=== PATIENT | male | born 1970 | race American Indian/Alaskan Native ===

== ENCOUNTER 2017-03-12 18:06 | Emergency (ER) | payer MEDICARE ==
[2017-03-12] MEDS ORDERED: CATAPRES PO ONE (19:44)
[2017-03-12] MEDS ORDERED: SUBLIMAZE IV ONE ×2 (19:44→21:56)
[2017-03-12] MEDS ORDERED: ZOFRAN IV ONE (19:44)
--- NOTE | 2017-03-12 19:55 | Emergency Department Report ---
HPI - General Chief Complaint: Abdominal Pain Time Seen by Provider: 03/12/17 19:35 - HPI HPI: Room 24 The patient is a 46-year-old male presenting with a chief complaint abdominal pain. The patient states she has a history of gastroparesis states yes feels as though his gastroparesis has been "bothering" him. Patient states it feels as though his stomach is cramping apart. Patient complains of diffuse periumbilical abdominal pain. Patient admits to nausea vomiting. Patient states she has not had a bowel movement in 4 days. Patient states Reglan has not helped. Patient currently gives his pain a score of 10/10. Patient states upon arrival to the ED he developed a severe headache. The patient last received dialysis today. Location: Abdomen Duration: Intermittent since yesterday Quality: Ripping/like gastroparesis Severity: 10/10 Modifying factors: Reglan and grapes have not helped with constipation Context: [see above] Mode of transportation: [not driving] ED Past Medical Hx - Past Medical History Previous Medical History?: Yes Hx Hypertension: Yes Hx Diabetes: Yes Hx Renal Disease: Yes (ESRD on dialysis) Hx Headaches / Migraines: Yes - Surgical History Past Surgical History?: Yes Hx Cholecystectomy: Yes Additional Surgical History: L fistula upper arm, herniorrhaphy - Family History Family history: no significant - Social History Smoking Status: Never Smoker Substance Use Type: None - Medications Home Medications: Home Medications Medication Instructions Recorded Confirmed Last Taken Type Calcium Carbonate/Vitamin D3 1 each PO QDAY 10/29/15 02/02/16 02/02/16 History [Oystercal-D 500 mg-400 Unit Tb] 1 EACH HYDROcodone/APAP 7.5-325 [[place] 1 each PO Q8HR PRN #10 tablet 10/29/15 02/02/16 02/02/16 Rx 7.5/325] 1 EACH Metoprolol [Lopressor TAB] 50 mg PO BID 10/29/15 02/02/16 02/02/16 History 50 MG Omeprazole [PriLOSEC] 40 mg PO QDAY 10/29/15 02/02/16 02/02/16 History 40 MG Ondansetron [Zofran Odt] 4 mg PO Q6H PRN 10/29/15 02/02/16 02/02/16 History 4 MG Ondansetron [Zofran Odt] 4 mg PO Q8HR #10 tab.rapdis 10/29/15 02/02/16 02/02/16 Rx 4 MG Simvastatin [Zocor TAB] 40 mg PO QHS 10/29/15 02/02/16 02/02/16 History 40 MG Vit B Cmplx 3/FA/Vit C/Biotin 1 each PO QDAY 10/29/15 02/02/16 02/02/16 History [Jordyn-Umair Rx Tablet] 1 EACH Vit B Comp&C/Folic Acid/Vit D3 1 each PO QDAY 10/29/15 02/02/16 02/02/16 History [Dialyvite 800 Plus D Wafer] 1 EACH cloNIDine [Catapres] 0.1 mg PO Q8H 10/29/15 02/02/16 02/02/16 History 0.1 MG hydrALAZINE [Apresoline] 25 mg PO Q8HR 10/29/15 02/02/16 02/02/16 History 25 MG Cinacalcet HCl [Sensipar] 60 mg PO DAILY 02/02/16 02/02/16 02/02/16 History 60 MG Diphenoxylate/Atropine [Lomotil] 1 tab PO QID PRN #20 tablet 02/02/16 Unknown Rx HYDROcodone/APAP 5-325 [[place] 1 - 2 each PO Q6HR PRN #14 tablet 02/02/16 Unknown Rx 5/325] Promethazine [Phenergan TAB] 25 mg PO Q6HR PRN #20 tab 02/02/16 Unknown Rx Promethazine [Phenergan] 25 mg MT Q6HR PRN #10 supp.rect 02/02/16 Unknown Rx Sevelamer Carbonate [Renvela] 800 mg PO TIDWM 02/02/16 02/02/16 02/02/16 History 800 MG Ciprofloxacin HCl [Ciprofloxacin 500 mg PO Q12HR #20 tab 03/12/17 Unknown Rx TAB] Docusate Sodium [Colace] 100 mg PO BID #60 capsule 03/12/17 Unknown Rx HYDROcodone/APAP 5-325 [[place] 1 each PO Q6HR PRN #14 tablet 03/12/17 Unknown Rx 5/325] Lactulose [Cephulac] 20 gm PO QDAY #90 ml 03/12/17 Unknown Rx metroNIDAZOLE [Flagyl] 500 mg PO Q12HR #20 tab 03/12/17 Unknown Rx ED Review of Systems ROS: Stated complaint: ABDOMINAL PAIN Other details as noted in HPI Comment: All other systems reviewed and negative Constitutional: denies: chills, fever Eyes: denies: eye pain, eye discharge, vision change ENT: denies: ear pain, throat pain Respiratory: denies: cough, shortness of breath, wheezing Cardiovascular: denies: chest pain, palpitations Endocrine: no symptoms reported Gastrointestinal: abdominal pain, nausea, vomiting, constipation. denies: diarrhea Genitourinary: denies: urgency, dysuria Musculoskeletal: denies: back pain, joint swelling, arthralgia Skin: denies: rash, lesions Neurological: headache Psychiatric: denies: anxiety, depression Hematological/Lymphatic: denies: easy bleeding, easy bruising Physical Exam - Physical Exam Vital Signs: Vital Signs 03/12/17 19:23 Temperature 97.4 F L Pulse Rate 97 H Blood Pressure 185/101 O2 Sat by Pulse 100 Oximetry Physical Exam: GENERAL: The patient is well-developed well-nourished male lying on stretcher not appearing to be in acute distress. [] HEENT: Normocephalic. Atraumatic. Extraocular motions are intact. Patient has moist mucous membranes. NECK: Supple. Trachea midline CHEST/LUNGS: Clear to auscultation. There is no respiratory distress noted. HEART/CARDIOVASCULAR: Regular. There is no tachycardia. There is no gallop rub or murmur. ABDOMEN: Abdomen is soft, with discomfort to palpation in the periumbilical, left upper quadrant and left lower quadrant. Patient has normal bowel sounds. There is no abdominal distention. SKIN: There is no rash. There is no edema. There is no diaphoresis. NEURO: The patient is awake, alert, and oriented. The patient is cooperative. The patient has no focal neurologic deficits. The patient has normal speech. Cranial nerves II through XII grossly intact, no drift MUSCULOSKELETAL: There is no evidence of acute injury. ED Course Vital Signs 03/12/17 19:23 Temperature 97.4 F L Pulse Rate 97 H Blood Pressure 185/101 O2 Sat by Pulse 100 Oximetry ED Medical Decision Making - Lab Data Result diagrams: 03/12/17 19:32 03/12/17 19:32 Laboratory Tests 03/12/17 03/12/17 19:32 19:32 WBC 4.8 RBC 3.34 L Hgb 9.7 L Hct 29.9 L MCV 90 MCH 29 MCHC 32 RDW 16.9 H Plt Count 214 Lymph % (Auto) 14.5 [place] % (Auto) 5.3 Eos % (Auto) 1.5 Baso % (Auto) 0.9 Lymph # 0.7 L [place] # 0.3 Eos # 0.1 Baso # 0.0 Seg Neutrophils % 77.8 H Seg Neutrophils # 3.7 Sodium 140 Potassium 4.2 Chloride 90.9 L Carbon Dioxide 28 Anion Gap 25 BUN 15 Creatinine 7.5 H Estimated GFR 10 BUN/Creatinine Ratio 2.00 Glucose 141 H Calcium 9.9 Total Bilirubin 0.60 AST 33 ALT 19 Alkaline Phosphatase 221 H Total Protein 8.8 H Albumin 5.0 Albumin/Globulin Ratio 1.3 Lipase 34 - Radiology Data Radiology results: report reviewed (CT abdomen and pelvis, CT head), image reviewed (CT abdomen and pelvis, CT head) CT abdomen and pelvis (read by radiologist)-multiple renal cysts have increased in size since prior study. On his are likely polycystic renal disease. There is wall thickening suggestive rel much: Possibly due to colitis. Likely mild constipation is seen in the rectosigmoid colon. CT head (read by radiologist)-likely mild chronic small vessel ischemic changes are seen in the paravertebral white matter, unchanged from prior study. Mild changes of acute left maxillary sinusitis are seen. - Differential Diagnosis gastroparesis, diverticulitis, ICH, hypertensive urgency Critical care attestation.: If time is entered above; I have spent that time in minutes in the direct care of this critically ill patient, excluding procedure time. ED Disposition Clinical Impression: Nausea and vomiting in adult, Acute abdominal pain, Acute colitis, Acute sinusitis, Hypertension Disposition: DISCHARGED TO HOME OR SELFCARE Is pt being admited?: No Does the pt Need Aspirin: No Condition: Stable Instructions: Hypertension (ED) Additional Instructions: Return to the emergency department immediately should you develop worsening symptoms, fever, inability to tolerate food or liquid or any other concerns. Prescriptions: Ciprofloxacin HCl [Ciprofloxacin TAB] 500 mg PO Q12HR #20 tab Docusate Sodium [Colace] 100 mg PO BID #60 capsule HYDROcodone/APAP 5-325 [[place] 5/325] 1 each PO Q6HR PRN #14 tablet PRN Reason: Pain Lactulose [Cephulac] 20 gm PO QDAY #90 ml metroNIDAZOLE [Flagyl] 500 mg PO Q12HR #20 tab Referrals: PRIMARY CARE, [Primary Care Provider] - 3-5 Days TANNER BRIDGES MD [Staff Physician] - 3-5 Days (Dr. Bridges is a intelligent systems engineer. Please follow up with him for further evaluation) Time of Disposition: 22:45
[2017-03-12 19:57] LABS: Basophils % (Auto) 0.9 % (0.0-1.8); Eosinophils % (Auto) 1.5 % (0.0-4.3); Hematocrit 29.9 % (35.5-45.6); Hemoglobin 9.7 gm/dl (11.8-15.2); Mean Corpuscular HGB Conc 32 % (32-34); Mean Corpuscular Hemoglobin 29 pg (28-32); Mean Corpuscular Volume 90 fl (84-94); Platelet Count 214 K/mm3 (140-440); Red Blood Count 3.34 M/mm3 (3.65-5.03); Red Cell Distribution Width 16.9 % (13.2-15.2); White Blood Count 4.8 K/mm3 (4.5-11.0)
[2017-03-12 20:11] LABS: Albumin/Globulin Ratio 1.3 %; Bilirubin,Total 0.6 mg/dL (0.1-1.2); Calcium 9.9 mg/dL (8.4-10.2); Chloride 90.9 mmol/L (98-107); Potassium 4.2 mmol/L (3.6-5.0); Total Protein 8.8 g/dL (6.3-8.2)
--- NOTE | 2017-03-12 21:30 | Cat Scan Report ---
FINAL REPORT PROCEDURE: CT HEAD/BRAIN WO CON TECHNIQUE: Computerized tomography of the head was performed without contrast material. HISTORY: hypertension, headache COMPARISON: Head CT dated February 02, 2016 FINDINGS: Changes of acute left maxillary sinusitis are seen. Mastoid air cells are clear. No calvarial fracture is seen. Cerebral ventricles are normal in size. No acute intracranial hemorrhage or mass effect is seen. Mild hypodensities are seen in the periventricular white matter, primarily in the frontal regions, similar to prior study. IMPRESSION: Likely mild chronic small vessel ischemic changes are seen in the periventricular white matter, unchanged from prior study. Mild changes of acute left maxillary sinusitis are seen.
--- NOTE | 2017-03-12 21:36 | Cat Scan Report ---
FINAL REPORT PROCEDURE: CT ABDOMEN PELVIS WO CON TECHNIQUE: Computerized axial tomography of the abdomen and pelvis was performed without intravenous contrast. This study is performed without intravascular contrast material and its sensitivity for abdominal and pelvic pathology, including neoplasms, inflammation, abscess, free fluid, thrombosis, arterial dissection and infarction, is reduced compared with a contrast enhanced study. HISTORY: diffuse abdominal pain nausea vomiting. Constipation COMPARISON: CT exam dated February 02, 2016 FINDINGS: Spleen and liver appear normal in size. Diffuse vascular calcifications are seen in the abdomen and pelvis. Varices are seen in the anterior abdominal wall. Patient has had prior cholecystectomy. No pancreatic abnormality is seen on this unenhanced study. The adrenal glands and abdominal aorta are normal in size. 5.4 cm cyst is seen in the lower pole of the right kidney, increased in size from prior study. Multiple smaller cysts are seen in both kidneys but these have mostly increased in size since prior study, also. Bladder appears normal. Prostate gland is normal in size. No free pelvic fluid is seen. Likely mild constipation is seen in the rectosigmoid colon. Much of the colon is not well-distended but there is questionable wall thickening throughout much of the ascending, transverse, and descending colon. Findings are worrisome for colitis. There are scattered diverticula in the colon without suggestion of diverticulitis. Normal appendix is seen. Bones have an osteomalacic appearance possibly due to poor renal function. Schmorl's node formation is seen in the endplates of the upper lumbar spine, similar to prior study. IMPRESSION: Multiple renal cysts have increased in size since prior study. Findings are likely polycystic renal disease. There is wall thickening suggested throughout much of the colon possibly due to colitis. Likely mild constipation is seen in the rectosigmoid colon.
[2017-03-12] MEDS ORDERED: APRESOLINE IV ONE ×2 (21:52→21:56)
[2017-03-12 22:48] VITALS: BP 117/73
== END 2017-03-12 23:05 | disposition home or self-care (01) ==
LOC: ED 18:06
DX: J01.90 Acute sinusitis, unspecified (principal); K52.9 Noninfective gastroenteritis and colitis, unspecified; R11.2 Nausea with vomiting, unspecified; E11.9 Type 2 diabetes mellitus without complications; I12.0 Hypertensive chronic kidney disease with stage 5 chronic kidney disease or end stage renal disease; N18.6 End stage renal disease; G43.909 Migraine, unspecified, not intractable, without status migrainosus; Z99.2 Dependence on renal dialysis
CPT/HCPCS: 36415; 70450; 74176; 80053; 83690; 85025; 96374; 96375; 96376; 99284; J0360; J2405; J3010

== ENCOUNTER 2017-04-16 20:16 | Emergency (ER) | payer MEDICARE ==
[2017-04-16] MEDS ORDERED: NACL 0.9% IR ONE ×2 (22:09→22:38)
--- NOTE | 2017-04-16 22:35 | Emergency Department Report ---
- General Chief Complaint: Wound/Laceration Stated Complaint: WOUND CARE Time Seen by Provider: 04/16/17 21:52 Source: patient, RN notes reviewed, old records reviewed Mode of arrival: Ambulatory Limitations: No Limitations - History of Present Illness Initial Comments: This is a 46-year-old male. The patient is previously unknown to me. The patient was recently admitted to this hospital, and had a left toe amputation by Dr. Kaur, of podiatry. The patient was sent to the ER by his home care nurse for evaluation of myaiasis. The patient denies headache, neck pain, chest pain, abdominal pain and shortness of breath. He describes minimal pain at the operative site. He also receives dialysis, and received dialysis today, and indicates that he received his normal session of dialysis. -: Sudden Extremity Location: Left: Foot Context: other Associated Symptoms: none - Related Data Home Medications Medication Instructions Recorded Confirmed Last Taken Calcium Carbonate/Vitamin D3 1 each PO QDAY 10/29/15 02/02/16 02/02/16 [Oystercal-D 500 mg-400 Unit Tb] 1 EACH Metoprolol [Lopressor TAB] 50 mg PO BID 10/29/15 02/02/16 02/02/16 50 MG Omeprazole [PriLOSEC] 40 mg PO QDAY 10/29/15 02/02/16 02/02/16 40 MG Ondansetron [Zofran ODT TAB] 4 mg PO Q6H PRN 10/29/15 02/02/16 02/02/16 4 MG Simvastatin [Zocor TAB] 40 mg PO QHS 10/29/15 02/02/16 02/02/16 40 MG Vit B Cmplx 3/FA/Vit C/Biotin 1 each PO QDAY 10/29/15 02/02/16 02/02/16 [Jordyn-Umair Rx Tablet] 1 EACH cloNIDine [Catapres] 0.1 mg PO Q8H 10/29/15 02/02/16 02/02/16 0.1 MG hydrALAZINE [Apresoline TAB] 25 mg PO Q8HR 10/29/15 02/02/16 02/02/16 25 MG Cinacalcet HCl [Sensipar] 60 mg PO DAILY 02/02/16 02/02/16 02/02/16 60 MG Sevelamer Carbonate [Renvela] 800 mg PO TIDWM 02/02/16 02/02/16 02/02/16 800 MG Previous Rx's Medication Instructions Recorded Last Taken Type Diphenoxylate/Atropine [Lomotil] 1 tab PO QID PRN #20 tablet 02/02/16 Unknown Rx Promethazine [Phenergan TAB] 25 mg PO Q6HR PRN #20 tab 02/02/16 Unknown Rx Docusate Sodium [Colace CAP] 100 mg PO BID #60 capsule 03/12/17 Unknown Rx HYDROcodone/APAP 5-325 [[place] 1 each PO Q6HR PRN #14 tablet 03/12/17 Unknown Rx 5-325 mg TAB] Lactulose [Cephulac] 20 gm PO QDAY #90 ml 03/12/17 Unknown Rx HYDROcodone/APAP 7.5-325 [[place] 1 each PO Q8HR PRN #10 tablet 04/12/17 Unknown Rx 7.5-325 mg TAB] Vancomycin/0.9 % Sod Chloride 1 gm IV 3XW 14 Days 04/12/17 Unknown Rx [Vancomycin 1 G/200Ml-0.9% NaCl] Allergies Allergy/AdvReac Type Severity Reaction Status Date / Time No Known Allergies Allergy Verified 10/28/15 23:39 ED Review of Systems ROS: Stated complaint: WOUND CARE Other details as noted in HPI Constitutional: denies: fever Eyes: denies: vision change ENT: denies: epistaxis Respiratory: denies: cough Cardiovascular: denies: chest pain Gastrointestinal: denies: abdominal pain Musculoskeletal: as per HPI Skin: as per HPI Neurological: denies: headache, weakness Psychiatric: as per HPI ED Past Medical Hx - Past Medical History Previous Medical History?: Yes Hx Hypertension: Yes Hx Diabetes: Yes Hx Renal Disease: Yes (ESRD on dialysis T,TH,SAT. ) Hx Headaches / Migraines: Yes - Surgical History Hx Cholecystectomy: Yes Additional Surgical History: L fistula upper arm, herniorrhaphy - Social History Smoking Status: Current Some Day Smoker - Medications Home Medications: Home Medications Medication Instructions Recorded Confirmed Last Taken Type Calcium Carbonate/Vitamin D3 1 each PO QDAY 10/29/15 02/02/16 02/02/16 History [Oystercal-D 500 mg-400 Unit Tb] 1 EACH Metoprolol [Lopressor TAB] 50 mg PO BID 10/29/15 02/02/16 02/02/16 History 50 MG Omeprazole [PriLOSEC] 40 mg PO QDAY 10/29/15 02/02/16 02/02/16 History 40 MG Ondansetron [Zofran ODT TAB] 4 mg PO Q6H PRN 10/29/15 02/02/16 02/02/16 History 4 MG Simvastatin [Zocor TAB] 40 mg PO QHS 10/29/15 02/02/16 02/02/16 History 40 MG Vit B Cmplx 3/FA/Vit C/Biotin 1 each PO QDAY 10/29/15 02/02/16 02/02/16 History [Jordyn-Umair Rx Tablet] 1 EACH cloNIDine [Catapres] 0.1 mg PO Q8H 10/29/15 02/02/16 02/02/16 History 0.1 MG hydrALAZINE [Apresoline TAB] 25 mg PO Q8HR 10/29/15 02/02/16 02/02/16 History 25 MG Cinacalcet HCl [Sensipar] 60 mg PO DAILY 02/02/16 02/02/16 02/02/16 History 60 MG Diphenoxylate/Atropine [Lomotil] 1 tab PO QID PRN #20 tablet 02/02/16 Unknown Rx Promethazine [Phenergan TAB] 25 mg PO Q6HR PRN #20 tab 02/02/16 Unknown Rx Sevelamer Carbonate [Renvela] 800 mg PO TIDWM 02/02/16 02/02/16 02/02/16 History 800 MG Docusate Sodium [Colace CAP] 100 mg PO BID #60 capsule 03/12/17 Unknown Rx HYDROcodone/APAP 5-325 [[place] 1 each PO Q6HR PRN #14 tablet 03/12/17 Unknown Rx 5-325 mg TAB] Lactulose [Cephulac] 20 gm PO QDAY #90 ml 03/12/17 Unknown Rx HYDROcodone/APAP 7.5-325 [[place] 1 each PO Q8HR PRN #10 tablet 04/12/17 Unknown Rx 7.5-325 mg TAB] Vancomycin/0.9 % Sod Chloride 1 gm IV 3XW 14 Days 04/12/17 Unknown Rx [Vancomycin 1 G/200Ml-0.9% NaCl] ED Physical Exam - General General appearance: alert, in no apparent distress - Head Head exam: Present: atraumatic, normocephalic - Eye Eye exam: Present: normal appearance, EOMI. Absent: nystagmus - ENT ENT exam: Present: normal exam, normal orophraynx, mucous membranes moist, normal external ear exam - Neck Neck exam: Present: normal inspection, full ROM. Absent: tenderness, meningismus - Respiratory Respiratory exam: Present: normal lung sounds bilaterally. Absent: respiratory distress, wheezes, rales, rhonchi, stridor, chest wall tenderness, accessory muscle use, decreased breath sounds - Cardiovascular Cardiovascular Exam: Present: regular rate, normal rhythm, normal heart sounds. Absent: bradycardia, tachycardia, irregular rhythm, systolic murmur, diastolic murmur, rubs, gallop - GI/Abdominal GI/Abdominal exam: Present: soft, normal bowel sounds. Absent: distended, tenderness, guarding, rebound, rigid, pulsatile mass - Rectal Rectal exam: Present: deferred - Extremities Exam Extremities exam: Present: normal capillary refill (2+ pulses noted in 4 extremities), other (there is a left upper extremity AV fistula with an appropriate thrill.). Absent: normal inspection (the left foot demonstrates a surgical sites where the former second and third toes existed. 3 Kika Larmer are noted. There is no redness, pus or streaking. Wound appears to be healing well. Minimal punctate necrotic tissue noted on the plantar aspect of the patient's foot. There is no crepitus. Compartments are soft.), pedal edema, joint swelling, calf tenderness - Back Exam Back exam: Present: normal inspection, full ROM. Absent: tenderness, CVA tenderness (R), CVA tenderness (L), muscle spasm, paraspinal tenderness, vertebral tenderness - Neurological Exam Neurological exam: Present: alert, oriented X3, other (Extraocular movements intact. Tongue midline. No facial droop. Facial sensation intact to light touch in the V1, V2, V3 distribution bilaterally. 5 and 5 strength in 4 extremities.. Sensation is intact to light touch in 4 extremities.). Absent: motor sensory deficit - Psychiatric Psychiatric exam: Present: normal affect, normal mood - Skin Skin exam: Present: warm, dry, intact, normal color. Absent: rash ED Course Vital Signs 04/16/17 21:28 Temperature 98.0 F Pulse Rate 85 Respiratory 18 Rate Blood Pressure 123/76 O2 Sat by Pulse 100 Oximetry ED Medical Decision Making - Lab Data Vital Signs 04/16/17 21:28 Temperature 98.0 F Pulse Rate 85 Respiratory 18 Rate Blood Pressure 123/76 O2 Sat by Pulse 100 Oximetry - Medical Decision Making Differential diagnosis: myiasis, now resolved, woud care follow up Assessment and plan: 46-year-old male sent to ER for asymptomatic myiasis. I have personally removed the remaining larvae. The patient is afebrile with reassuring vital signs. As per his discharge summaries, the patient is receiving vancomycin and hemodialysis. I have discussed the patient's case with his operative surgeon, Dr. Kaur, who indicates he can see the patient on Tuesday as a follow-up. This was discussed with the patient and family, all of whom verbalized understanding, and were amenable to this plan. The wound site appears to be healing well, with single punctate area of necrotic tissue, given that he has close follow-up this Tuesday, I don't believe the patient requires readmission or emergent surgical intervention. Critical care attestation.: If time is entered above; I have spent that time in minutes in the direct care of this critically ill patient, excluding procedure time. ED Disposition Clinical Impression: Myiasis Disposition: - TO HOME OR SELFCARE Is pt being admited?: No Does the pt Need Aspirin: No Condition: Stable Instructions: Wound Healing and Your Diet (ED), Acute Wound Care (ED) Additional Instructions: Continue current outpatient medications. Follow up on Tuesday with your operative surgeon, Dr. Kaur. Consider following up at the wound care center as well. Return to the ER right away with fevers or chills, chest pain or shortness of breath, lethargy, irritability, confusion, change in mental status, redness, pus, streaking. Referrals: PRIMARY CARE, [Primary Care Provider] - 3-5 Days RIMA KAUR DPM [Staff Physician] - 3-5 Days [facility] [Outside] - 3-5 Days
[2017-04-16] MEDS ORDERED: HYDROGEN PEROXIDE TP ONE (22:37)
[2017-04-16 22:54] LABS: Hematocrit 24.1 % (35.5-45.6); Mean Corpuscular HGB Conc 33 % (32-34); Mean Corpuscular Hemoglobin 30 pg (28-32); Mean Corpuscular Volume 90 fl (84-94); Platelet Count 376 K/mm3 (140-440); Red Blood Count 2.69 M/mm3 (3.65-5.03); Red Cell Distribution Width 15.8 % (13.2-15.2); White Blood Count 7.7 K/mm3 (4.5-11.0)
[2017-04-16 22:59] LABS: Calcium 8.3 mg/dL (8.4-10.2); Chloride 95.6 mmol/L (98-107); Potassium 4.9 mmol/L (3.6-5.0)
[2017-04-16 23:34] VITALS: BP 139/78
== END 2017-04-17 00:15 | disposition home or self-care (01) ==
LOC: ED 20:16
DX: B87.1 Wound myiasis (principal); E11.22 Type 2 diabetes mellitus with diabetic chronic kidney disease; I12.0 Hypertensive chronic kidney disease with stage 5 chronic kidney disease or end stage renal disease; N18.6 End stage renal disease; F17.200 Nicotine dependence, unspecified, uncomplicated; Z89.412 Acquired absence of left great toe
CPT/HCPCS: 36415; 80048; 82550; 85027; 99283

== ENCOUNTER 2017-04-20 10:22 | Outpatient (CLI) | payer MEDICARE ==
[2017-04-20] MEDS ORDERED: XYLOCAINE TOPICAL 4% TP ONE (11:11)
== END 2017-04-20 10:23 | disposition home or self-care (01) ==
LOC: WOUND 10:22
PROVIDERS: ATTEND Surgery
DX: T87.89 Other complications of amputation stump (principal); E11.40 Type 2 diabetes mellitus with diabetic neuropathy, unspecified; K21.9 Gastro-esophageal reflux disease without esophagitis; E78.5 Hyperlipidemia, unspecified; E11.22 Type 2 diabetes mellitus with diabetic chronic kidney disease; I12.0 Hypertensive chronic kidney disease with stage 5 chronic kidney disease or end stage renal disease; N18.5 Chronic kidney disease, stage 5; F41.9 Anxiety disorder, unspecified; F17.200 Nicotine dependence, unspecified, uncomplicated; Z99.2 Dependence on renal dialysis; Z72.89 Other problems related to lifestyle; Y83.5 Amputation of limb(s) as the cause of abnormal reaction of the patient, or of later complication, without mention of misadventure at the time of the procedure

== ENCOUNTER 2017-04-29 08:28 | Outpatient (CLI) | payer MEDICARE ==
--- NOTE | 2017-05-02 07:27 | Vascular Lab Report ---
LEFT LOWER EXTREMITY ARTERIAL DUPLEX: REASON FOR EXAM: Peripheral arterial disease. COMMENTS ON THE LEFT: Biphasic waveforms are seen proximally. Monophasic waveforms are seen distally. No significant velocity gradients are identified. No focal significant plaque is identified. Findings are consistent with normal perfusion. Findings are consistent with the ability to heal distal wounds. IMPRESSION: LEFT:Essentially normal arterial flow.
== END 2017-04-29 08:29 | disposition home or self-care (01) ==
LOC: VAS 08:28
PROVIDERS: ATTEND Surgery
DX: E11.621 Type 2 diabetes mellitus with foot ulcer (principal); L97.529 Non-pressure chronic ulcer of other part of left foot with unspecified severity; I12.0 Hypertensive chronic kidney disease with stage 5 chronic kidney disease or end stage renal disease; N18.6 End stage renal disease; F17.210 Nicotine dependence, cigarettes, uncomplicated

== ENCOUNTER 2017-05-04 10:35 | Outpatient (CLI) | payer MEDICARE ==
[2017-05-04] MEDS ORDERED: XYLOCAINE TOPICAL 4% TP ONE (13:00)
== END 2017-05-04 10:36 | disposition home or self-care (01) ==
LOC: WOUND 10:35
PROVIDERS: ATTEND Surgery
DX: T87.89 Other complications of amputation stump (principal); E11.621 Type 2 diabetes mellitus with foot ulcer; L97.523 Non-pressure chronic ulcer of other part of left foot with necrosis of muscle; E11.22 Type 2 diabetes mellitus with diabetic chronic kidney disease; I12.0 Hypertensive chronic kidney disease with stage 5 chronic kidney disease or end stage renal disease; N18.6 End stage renal disease; E11.40 Type 2 diabetes mellitus with diabetic neuropathy, unspecified; K21.9 Gastro-esophageal reflux disease without esophagitis; E78.5 Hyperlipidemia, unspecified; F17.210 Nicotine dependence, cigarettes, uncomplicated; Z99.2 Dependence on renal dialysis; Z72.89 Other problems related to lifestyle; Y83.5 Amputation of limb(s) as the cause of abnormal reaction of the patient, or of later complication, without mention of misadventure at the time of the procedure

== ENCOUNTER 2017-05-18 10:58 | Outpatient (CLI) | payer MEDICARE ==
[2017-05-18] MEDS ORDERED: XYLOCAINE TOPICAL 4% TP ONE ×2 (11:09→14:44)
== END 2017-05-18 10:59 | disposition home or self-care (01) ==
LOC: WOUND 10:58
PROVIDERS: ATTEND Surgery
DX: T87.89 Other complications of amputation stump (principal); E11.22 Type 2 diabetes mellitus with diabetic chronic kidney disease; I12.0 Hypertensive chronic kidney disease with stage 5 chronic kidney disease or end stage renal disease; N18.6 End stage renal disease; E11.40 Type 2 diabetes mellitus with diabetic neuropathy, unspecified; Z99.2 Dependence on renal dialysis; Z72.89 Other problems related to lifestyle; F17.210 Nicotine dependence, cigarettes, uncomplicated; Y83.5 Amputation of limb(s) as the cause of abnormal reaction of the patient, or of later complication, without mention of misadventure at the time of the procedure

== ENCOUNTER 2017-05-18 12:22 | Emergency (ER) | payer MEDICARE ==
[2017-05-18 12:51] VITALS: BP 181/97
[2017-05-18 13:23] LABS: INR 1.04 (0.87-1.13)
[2017-05-18 13:24] LABS: Partial Thromboplastin Time 26.8 Sec. (24.2-36.6)
[2017-05-18 13:28] LABS: Basophils % (Auto) 1.1 % (0.0-1.8); Eosinophils % (Auto) 4.2 % (0.0-4.3); Hematocrit 33.8 % (35.5-45.6); Hemoglobin 10.5 gm/dl (11.8-15.2); Mean Corpuscular HGB Conc 31 % (32-34); Mean Corpuscular Hemoglobin 28 pg (28-32); Mean Corpuscular Volume 89 fl (84-94); Platelet Count 205 K/mm3 (140-440); Red Blood Count 3.78 M/mm3 (3.65-5.03); Red Cell Distribution Width 17.5 % (13.2-15.2); White Blood Count 4.8 K/mm3 (4.5-11.0)
[2017-05-18 13:35] LABS: BUN/Creatinine Ratio 3.85; Calcium 8.5 mg/dL (8.4-10.2); Chloride 99.1 mmol/L (98-107); Potassium 5.6 mmol/L (3.6-5.0)
--- NOTE | 2017-05-20 11:16 | Vascular Lab Report ---
RIGHT UPPER EXTREMITY VENOUS DUPLEX: REASON FOR EXAM: Pain and swelling of the right upper extremity COMMENTS ON THE RIGHT: All arm veins visualized are freely compressible without evidence of internal echogenicity. The subclavian and internal jugular veins are free of thrombus. Flow is spontaneous and phasic throughout. COMMENTS ON THE LEFT: The subclavian and internal jugular veins are free of thrombus. IMPRESSION: No evidence of acute or chronic deep venous thrombosis in the right upper extremity.
== END 2017-05-18 16:07 | disposition left against medical advice (07) ==
LOC: ED 12:22
DX: M79.603 Pain in arm, unspecified (principal); Z53.21 Procedure and treatment not carried out due to patient leaving prior to being seen by health care provider
CPT/HCPCS: 36415; 80048; 85025; 85610; 85670; 85730